=== PATIENT | male | born 1980 | race Caucasian/White ===

== ENCOUNTER 2024-10-21 16:52 | Emergency (ER) | payer MEDICARE, SELFPAY ==
[2024-10-21 16:54] VITALS: BP 141/87; PULSE 77; RESP 16; TEMP 36.3; O2SAT 96
--- NOTE | 2024-10-21 17:40 | EX.ED.UPPERE ---
HPI History of Present Illness Chief Complaint: Laceration Informant: patient Narrative Narrative: 44-year-old male states he was splitting wood with a log splitter, and the moving metal piece accidentally caught his left thumb sustaining a laceration. He states it was not a crush injury and he does not have any severe pain. [id number]. Tetanus Immunization: <5 years [facility] Medical History (Updated 10/21/24 @ 18:[address] George Kevin MD) Multiple sclerosis Allergy/AdvReac Type Severity Reaction Status Date / Time No Known Allergies Allergy Verified 10/21/24 16:56 Social History Smoking Status: Never smoker ROS ROS ED Constitutional Constitutional ED: Denies chills or fever(s) Musculoskeletal Musculoskeletal: Reports extremity pain; Denies neck pain Integumentary Reports as per HPI and laceration; Denies Abrasions or rash Neurologic Neurologic: Denies paresthesias or weakness EXAM Physical Exam Const Vital Signs: 10/21/24 16:54 Temperature 97.4 F L Temperature Source Temporal Pulse Rate 77 Respiratory Rate 16 Blood Pressure 141/87 H Blood Pressure Mean 105 Pulse Ox 96 Oxygen Delivery Method Room Air Positive well nourished and well developed General Appearance ED: well developed and NAD Neck full ROM and supple Back/Spine normal ROM and normal to inspection Extremity Extremity Narrative: Left thumb: There is a longitudinal curvilinear laceration about the distal phalanx dorsally, that traverses through the cuticle and involves the nail including linear damage to the nail that does not go all the way to the tip of the nail, it does not appear to involve the nailbed. There is minimal bleeding from the damaged the nail so it appears to be damaged all the way through although it is not a complete laceration through the distal aspect of the nail. There is a minor subungual hematoma but given that there is bleeding, there is not major tenderness. There is no bony tenderness. He has full range of motion at the IPJ and that includes extension and flexion. Neuro oriented x3, no focal motor deficits and no sensory deficits noted Sensorium / Orientation: alert Psych mental status grossly normal and thought process normal Skin Skin Narrative: Total 3.5 cm macerated, stellate laceration dorsal left thumb including the nail involvement. Rashes: no rashes MDM MDM MDM Narrative Medical decision making narrative: I do not think he has a fracture so I do not think an x-ray is needed here. It is clean appearing am not concerned about for material, he is currently soaking it and Betadine and saline, it is not very tender. I think the laceration should be repaired to the cuticle but I do not think we need to remove the nail. There is some damage to it, I advised him that if the root of the nail is damage is possible he could lose part of it, and he understands that, but I do not think there is a major injury to the nailbed requiring removal of the nail or even part of that right now. Procedures Lacerations Left thumb: Length: 3.5 cm Depth: Sub Q Shape: Stellate Prep: Sterile Conditions and Chlorhexadine Laceration repair: Irrigated (Soaked and scrubbed chlorhexidine, Betadine), Lidocaine (3 cc, plain 1%), Local and Skin sutures Number of Sutures/Cortes: 8 Suture Information: Ethilon, Simple and 5-0 Comment: Tolerated well no complications. 4 sutures placed at the proximal aspect in order to distribute forces allowing patient to flex thumb without disrupting repair. Discharge Plan Triage Chief Complaint: Laceration ED Provider: George Kevin Dx/Rx/DC Orders Clinical Impression: Laceration of left thumb without foreign body with damage to nail Primary Care Provider: Care Physician,No Primary Referrals: Joanna Leger MEDICAL UNDERWRITER, MEDICAL UNDERWRITER-C [Non-Staff] - Activity Restrictions/Additional Instructions: Follow-up with family practice, urgent care, or ER in 7-10 days for wound reevaluation and suture removal. Print Language: [place]ian Disposition Disposition: Home, Self Care
[2024-10-21] MEDS: Ibuprofen 600 MG Tablet PO (17:50)
[2024-10-21] MEDS: Lidocaine 1% (20 ml mdv) 20 ML Vial INFILT (17:51)
[2024-10-21] MEDS: Lidocaine/Epi/Tetracaine 50 ML 1 APPLIC TOPICAL (17:51)
[2024-10-21 18:57] VITALS: BP 130/70; PULSE 77; RESP 16; TEMP 36.3; O2SAT 96
== END 2024-10-21 18:58 | disposition home or self-care (01) ==
PROVIDERS: Emergency Provider Emergency Medicine; Visit Provider Emergency Medicine
DX: S61.112A Laceration without foreign body of left thumb with damage to nail, initial encounter (principal); W27.8XXA Contact with other nonpowered hand tool, initial encounter
CPT/HCPCS: 12002; 11760; 99283